=== PATIENT | male | born 1955 | race Caucasian/White ===

== ENCOUNTER 2020-05-18 09:35 | Emergency (ER) | payer MEDICARE ==
[~2020-05-18] VITALS: Ht 188 cm; Wt 102.1 kg
[~2020-05-18 09:35] MED LIST: TAMSULOSIN HCL0.4 MG PO; ZOLPIDEM TARTRA10 MG PO
[2020-05-18] MEDS ORDERED: CYCLOBENZAPRINE10 MG PO (12:26)
== END 2020-05-18 12:48 | disposition home or self-care (01) ==
LOC: ED 09:35
DX: K52.9 Noninfective gastroenteritis and colitis, unspecified (principal); M54.5 Low back pain; Z79.899 Other long term (current) drug therapy
CPT/HCPCS: 74177; 80053; 81001; 83690; 83735; 85025; 99284-25; Q9967

== ENCOUNTER 2022-01-15 07:12 | Day surgery (SDC) | payer MEDICARE ==
[~2022-01-15] VITALS: Ht 188 cm; Wt 111.8 kg
[~2022-01-15 07:12] MED LIST changes: +CYCLOBENZAPRINE10 MG PO
--- NOTE | 2022-01-15 09:07 | NUR ---
01/15/22 0907 Renetta Leach 0833 PT ARRIVED IN PACU SLEEPY WITH NO C/O'S. ABD SOFT. 0900 PT SITTING UP IN BED TALKING TO STAFF.
--- NOTE | 2022-01-15 14:23 | NUR ---
PT JUST IN RM, WAITING FOR PENELOPE MARTINEZ GIVE PREP INSTRUCTIONS. PT ALERT, HERE FOR HIS FIRST SCOPE. PREP MADE QUITE AN IMPRESSION. ALL QUESTIONS ASKED WERE ANSWERED. PENELOPE SWEENEY IN, GAVE BLESSING. WILL FOLLOW NEEDED
--- NOTE | 2022-01-16 06:17 | OR ---
[facility] [address], [place] [address] Signed DATE OF OPERATION: 01/15/2022 SURGEON: Ai Khalil MD PREOPERATIVE DIAGNOSES: 1. A 4 mm adenomatous polyp at 18 cm in 2013 at age 58. 2. Hyperplastic rectal polyps. POSTOPERATIVE DIAGNOSES: 1. Minimal moderate sigmoid diverticulosis. 2. 4 mm polyp mid right colon. 3. 4 mm polyp distal right colon. 4. 3 mm polyp at 45 cm. PROCEDURE: Colonoscopy with hot biopsy. ESTIMATED BLOOD LOSS: None. INDICATIONS: Stuart is a 67-year-old gentleman, who presents for followup colonoscopy. I helped him with his initial colonoscopy back in 2013 at the age of 58. He had a 4 mm adenomatous polyp removed at 18 cm at the top of the rectum. He had several small hyperplastic polyps removed in the rectum as well. He had done well with Versed and fentanyl at that time. He was asked to follow up in 5 years. He is now coming that the COVID pandemic has subsided. In the office, I gave him a pamphlet on colonoscopy and we reviewed the nature of the test. He understands there is risk including, but not limited to gas bloating, crampy abdominal pain, bleeding, perforation requiring surgery, and missed diagnosis. We also discussed the need for IV conscious sedation. He had done well with Versed and fentanyl in the past. He had expressed understanding and wished to proceed. PROCEDURE NOTE: Stuart was taken into our endoscopy suite and placed in the left lateral decubitus position. He was given a total of mcg of fentanyl and 9 mg of Versed. In the end, he was frequently awake, frequently talking to us and I think in the future he would be much better served with monitored anesthesia care with propofol infusion especially as he is getting older. A digital rectal exam had been done and this was unremarkable. He does have some induration and swelling to his prostate gland. The adult colonoscope had been introduced and advanced as above. It took a few minutes to Electronically Signed By: AI KHALIL MD 01/16/22 0617 PATIENT NAME: STEPH SUMMERS OPERATIVE REPORT DATE OF : 55 REPORT #: [id number] PHYSICIAN: AI KHALIL MD PCP: CALLIE BEGUM MD REPORT IS CONFIDENTIAL AND NOT TO BE RELEASED WITHOUT AUTHORIZATION [facility] [address] [place] [id number] Signed get through the sigmoid colon and finally down around the hepatic flexure into the cecum itself. We did use extra sedation abdominal compression in order to advance the scope. I think mainly because he was awake and pushing back on the scope. Fortunately, his prep was good. We could easily see the appendiceal orifice and ileocecal valve. We then slowly withdrawn the scope. Pictures were taken throughout for photodocumentation. The above-mentioned polyps were easily removed with the help of hot biopsy forceps. We did see his diverticuli. They were moderate in size, few to moderate in number, and scattered about. Once in the rectum, the scope had been retroflexed and there was no additional pathology noted above the anal canal. After this, the gas was suctioned out and colonoscope removed. Overall, Stuart tolerated the procedure well. RECOMMENDATIONS: I will see Stuart back in my office in 7 to 14 days to review his results. I suspect he will stay on the five year plan. He might consider moderate anesthesia care with propofol in the future as described above. . Ai Khalil MD ALB/MODL /[id number] cc: MD Ai Stoddard MD Copies: CALLIE BEGUM MD, ANDREW L MD ~ Electronically Signed By: AI KHALIL MD 01/16/22 0617 PATIENT NAME: STEPH SUMMERS OPERATIVE REPORT DATE OF : 55 REPORT #: [id number] PHYSICIAN: AI KHALIL MD PCP: CALLIE BEGUM MD REPORT IS CONFIDENTIAL AND NOT TO BE RELEASED WITHOUT AUTHORIZATION
--- NOTE | 2022-01-17 10:10 | PATH ---
[facility] [address] [place], [place] [address] Signed SPECIMEN(S): A ASCENDING/RIGHT MID COLON POLYP SPECIMEN(S): B DISTAL RIGHT COLON POLYP SPECIMEN(S): C COLON POLYP AT 45 CM SPECIMEN SOURCE: A. ASCENDING/RIGHT MID COLON POLYP B. DISTAL RIGHT COLON POLYP C. COLON POLYP AT 45 CM CLINICAL HISTORY: History of colon polyps. FINAL PATHOLOGIC DIAGNOSIS: A. Colon, ascending/right mid, polyp, polypectomy: - Tubular adenoma. - Negative for high-grade dysplasia or malignancy. B. Colon, distal right, polyp, polypectomy: - Cauterized colonic mucosa with no histopathologic abnormality identified, see Comment. - No evidence of malignancy. C. Colon, polyp at 45 cm, polypectomy: - Tubular adenoma. - Negative for high-grade dysplasia or malignancy. COMMENT: Regarding specimen B: Additional deeper levels were examined. The degree of cautery artifact precludes definitive evaluation for low-grade dysplasia. NAL:cml:C2NR MICROSCOPIC EXAMINATION: Histologic sections of all submitted blocks are examined by light microscopy. These findings, together with the gross examination, support the pathologic diagnosis. GROSS DESCRIPTION: Three specimens are received in three containers labeled with "TS". A. The specimen, labeled "TS, 1," and designated on the requisition "ascending/right mid colon polypectomy," is received in formalin and consists of one fragment of pink-phillip tissue (0.3 cm in greatest dimension) with multiple fragments of yellow phillip fecal debris (0.1 cm in greatest dimension). The specimen is submitted entirely in cassette A1. PATIENT NAME: STEPH SUMMERS PATHOLOGY DATE OF : 55 REPORT #: [id number] PHYSICIAN: JAXSON YEAGER PCP: CALLIE BEGUM MD REPORT IS CONFIDENTIAL AND NOT TO BE RELEASED WITHOUT AUTHORIZATION [facility] [address] [place], [place] [address] Signed B. The specimen, labeled "TS, 2," and designated on the requisition "distal right colon polypectomy," is received in formalin and consists of one fragment of pink-phillip tissue (0.3 cm in greatest dimension). The specimen is submitted entirely in cassette B1. C. The specimen, labeled "TS, 3," and designated on the requisition "45 cm colon polypectomy," is received in formalin and consists of two fragments of pink-phillip tissue (0.2 cm in greatest dimension). The specimen is submitted entirely in cassette C1. AC (under the direct supervision of a pathologist) The Gross Description was prepared using a voice recognition system. The report was reviewed for accuracy; however, sound-alike word errors, addition and/or deletions may occur. If there is any question about this report, please contact Client Services. PERFORMING LABORATORY: The technical component was performed by [facility], [address] [place] [id number] (CLIA# [id number]). [facility], [address] [place] [id number] (CLIA# [id number]). Diagnostician: Mary Johnston MD Pathologist Electronically Signed 01/17/2022 Copies: ~ PATIENT NAME: STEPH SUMMERS PATHOLOGY DATE OF : 55 REPORT #: [id number] PHYSICIAN: JAXSON YEAGER PCP: CALLIE BEGUM MD REPORT IS CONFIDENTIAL AND NOT TO BE RELEASED WITHOUT AUTHORIZATION
== END 2022-01-15 09:25 | disposition home or self-care (01) ==
LOC: OPS 07:12 → DS 07:12 → OPS 07:30
PROVIDERS: ATTEND Colon & Rectal Surgery
PROC: 0DBF8ZX Excision of Right Large Intestine, Via Natural or Artificial Opening Endoscopic, Diagnostic (ICD-10-PCS; 2022-01-15)
PROC: 0DBE8ZX Excision of Large Intestine, Via Natural or Artificial Opening Endoscopic, Diagnostic (ICD-10-PCS; principal; 2022-01-15 08:15)
DX: Z12.11 Encounter for screening for malignant neoplasm of colon (principal); D12.2 Benign neoplasm of ascending colon; K57.30 Diverticulosis of large intestine without perforation or abscess without bleeding; M19.90 Unspecified osteoarthritis, unspecified site; Z87.19 Personal history of other diseases of the digestive system
CPT/HCPCS: 99153; G0500; J2250; J3010; J7121